=== PATIENT | female | born 1990 | race American Indian/Alaskan Native ===

== ENCOUNTER 2017-08-06 09:28 | Outpatient (CLI) | payer BC ==
--- NOTE | 2017-08-06 10:21 | XRay Report ---
Right knee 2 views: History: Right knee pain. Findings: Normal medial and lateral compartment with minimal lateral and patellofemoral compartment. Osteophytes are identified at the posterior-superior and posterior-inferior patella. No fracture. No joint effusion. Impression: Mild arthritic changes patellofemoral compartment knee joint.
== END 2017-08-06 09:29 | disposition home or self-care (01) ==
LOC: SPVIMAG 09:28
PROVIDERS: ATTEND Orthopaedic Surgery Sports Medicine
DX: M17.11 Unilateral primary osteoarthritis, right knee (principal)